=== PATIENT | female | born 1990 | race Caucasian/White ===

== ENCOUNTER 2021-04-07 16:26 | Observation (INO) | payer BC | END 2021-04-07 16:57 | disposition home or self-care (01) | LOC: MED SURG 16:26 | PROVIDERS: ADMIT Obstetrics & Gynecology; ATTEND Obstetrics & Gynecology | DX: O36.5930 Maternal care for other known or suspected poor fetal growth, third trimester, not applicable or unspecified (principal); Z3A.38 38 weeks gestation of pregnancy | CPT/HCPCS: 59025; G0378 ==

== ENCOUNTER 2021-04-13 04:42 | Inpatient (IN) | payer BC ==
[~2021-04-13 04:42] MED LIST: PITOCIN 30 UNITS/ LR 500 ML 30 UNITS/500 ML PLAST..BAG IV SCH
[2021-04-13] MEDS ORDERED: Zofran 4 MG/2 ML VIAL IV PRN (05:00)
[2021-04-13 06:14] LABS: Absolute Neutrophil Ct (ANC) 5.79 (1.4-6.9); Basophil (Absolute #) 0.02 (0-0.4); Eosinophil % 2.1 % (0.00-5.0); Eosinophil (Absolute #) 0.17 (0-0.5); Hematocrit 28.7 % (35-47); Hemoglobin 9.2 gm/dl (12.0-16.0); Lymphocyte (Absolute #) 1.57 (1.0-4.6); Lymphocytes % 19.6 % (24.0-44.0); Mean Corpuscular Hemoglobin 28.2 pg (26-32); Mean Corpuscular Hgb Concent. 32.1 g/dl (32-36); Mean Platelet Volume 9.5 fl (7.5-11.0); Monocyte (Absolute #) 0.46 (0.0-1.3); Monocytes % 5.7 % (0.0-12.0); Neutrophil % 72.4 % (36.0-66.0); Platelet Count 270 K/mm3 (150-450); Red Blood Count 3.26 M/mm3 (4.1-5.4); Red Cell Distribution Width 14.8 % (11.5-14.0)
[2021-04-13] MEDS: Lactated Ringers 1,000 ML IV SCH ×2 (06:36→11:47)
[2021-04-13] MEDS ORDERED: Lactated Ringers 1,000 ML IV ONE (07:00)
[2021-04-13] MEDS ORDERED: FENTANYL 2 MCG-BUPIV 0.125%-NS 250 ML Epidur 250 ML EPIDURAL SCH (07:00)
[2021-04-13] MEDS ORDERED: Ephedrine Sulfate 50 MG/ML IV PRN (07:00)
[2021-04-13] MEDS ORDERED: BRETHINE 1 MG/ML SQ PRN (07:15)
[2021-04-13 07:18] LABS: Appearance SLIGHTLY CLOUDY (CLEAR); Bacteria RARE /HPF (NEGATIVE); Bilirubin NEGATIVE (NEGATIVE); Blood NEGATIVE Ery/ul (0-5); Epithelial Cells FEW /HPF (FEW); Glucose NEGATIVE (NEGATIVE); Ketones SMALL (NEGATIVE); Leukocyte Esterase NEGATIVE (NEGATIVE); Mucus SLIGHT /HPF (NEGATIVE); Nitrite NEGATIVE (NEGATIVE); Protein,Urine Dip NEGATIVE (Negative); Specific Gravity 1.019 (1.005-1.025); Urobilinogen NEGATIVE mg/dL (0-1)
[2021-04-13 07:46] LABS: Amphetamine,Urine NEGATIVE (NEGATIVE); Barbiturate,Urine NEGATIVE (NEGATIVE); Benzodiazepine,Urine NEGATIVE (NEGATIVE); Cocaine,Urine NEGATIVE (NEGATIVE); Methadone,Urine NEGATIVE (NEGATIVE); Opiate,Urine NEGATIVE (NEGATIVE); PCP,Urine NEGATIVE (NEGATIVE); THC,Urine NEGATIVE (NEGATIVE)
[2021-04-13] MEDS ORDERED: XYLOCAINE 1% HCL 20 ML MDV IJ PRN (08:00)
[2021-04-13] MEDS ORDERED: CORTISONE 1% CREAM TP PRN (13:05)
[2021-04-13] MEDS ORDERED: Dulcolax 10 MG SUPP PR PRN (13:05)
[2021-04-13] MEDS ORDERED: Mylicon 80MG PO PRN (13:05)
[2021-04-13] MEDS ORDERED: Anucort-HC SUPPOSITORY PR PRN (13:05)
[2021-04-13] MEDS ORDERED: Dermoplast Spray TP PRN (13:05)
[2021-04-13] MEDS ORDERED: LANSINOH 40 GM TOP PRN (13:05)
[2021-04-13] MEDS ORDERED: NORCO 5/325 MG PO PRN (13:05)
[2021-04-13] MEDS: TYLENOL EXTRA STRENGTH 500 MG PO PRN ×2 (13:20→23:52)
[2021-04-13] MEDS ORDERED: Adacel Vial IM ONE (16:00)
[2021-04-13] MEDS ORDERED: Colace 100 MG ONE (19:43)
[2021-04-13] MEDS: Colace 100 MG PO SCH (19:47)
[2021-04-13] MEDS: MOTRIN 400 MG PO PRN (19:48)
[2021-04-14] MEDS: MOTRIN 400 MG PO PRN ×3 (06:24→22:07)
[2021-04-14 06:34] LABS: Basophil (Absolute #) 0.04 (0-0.4); Eosinophil % 1.5 % (0.00-5.0); Eosinophil (Absolute #) 0.14 (0-0.5); Hematocrit 28.8 % (35-47); Hemoglobin 9.1 gm/dl (12.0-16.0); Lymphocyte (Absolute #) 1.26 (1.0-4.6); Lymphocytes % 13.6 % (24.0-44.0); Mean Cell Volume 87.8 fl (78-100); Mean Corpuscular Hemoglobin 27.7 pg (26-32); Mean Corpuscular Hgb Concent. 31.6 g/dl (32-36); Mean Platelet Volume 9.4 fl (7.5-11.0); Monocytes % 6.5 % (0.0-12.0); Platelet Count 230 K/mm3 (150-450); Red Blood Count 3.28 M/mm3 (4.1-5.4); Red Cell Distribution Width 14.9 % (11.5-14.0); White Blood Count 9.2 K/mm3 (4.0-10.5)
--- NOTE | 2021-04-14 08:12 | PCM.NOTE ---
Date and Time: 04/14/21 0810 Subjective Assessment: ppd 1 sp pt resting in bed and doing well ambulating and tolerating diet vss afebrile abd; soft uterus; firm lochia; mild hgb; 9.1 a/p sp ppd 1 doing well anticipate discharge tomorrow should fu office in 3 wks OBJECTIVE DATA Vital Signs: Vital Signs - 24 hr Temp Pulse Resp BP BP Pulse Ox 04/14/21 04:00 97.9 F 96 H 18 108/71 04/13/21 23:55 98.4 F 88 16 115/66 04/13/21 20:00 99.4 F 90 18 112/64 04/13/21 17:00 98.2 F 100 H 18 118/62 04/13/21 16:00 98.2 F 100 H 18 118/62 04/13/21 14:15 98.2 F 86 18 106/65 04/13/21 13:15 97.8 F 104 H 18 122/59 04/13/21 13:00 92 H 18 126/64 04/13/21 12:45 104 H 18 123/72 04/13/21 12:13 97.8 F 104 H 18 125/77 04/13/21 12:10 97.8 F 104 H 18 125/77 04/13/21 12:00 97.8 F 76 18 117/74 117/74 04/13/21 11:45 97.8 F 82 18 112/72 04/13/21 11:30 97.8 F 86 18 114/74 04/13/21 11:15 97.8 F 86 18 114/74 04/13/21 11:00 97.8 F 94 H 18 109/69 04/13/21 10:45 97.8 F 94 H 18 109/69 04/13/21 10:30 97.8 F 82 18 111/64 04/13/21 10:15 97.8 F 82 18 111/72 04/13/21 10:00 97.8 F 79 18 113/76 04/13/21 09:45 97.8 F 84 18 105/67 04/13/21 09:30 97.8 F 82 18 109/70 04/13/21 09:15 97.8 F 18 04/13/21 09:00 97.8 F 75 18 106/62 04/13/21 08:45 97.8 F 85 18 105/64 04/13/21 08:30 97.8 F 95 H 18 110/57 99 04/13/21 08:15 97.8 F 99 H 18 109/67 99 Pain Assessment - Last Documented Pain Intensity 2 Pain Scale Used 0-10 Pain Scale Intake and Output: Intake & Output 04/11/21 04/12/21 04/13/21 04/14/21 11:59 11:59 11:59 11:59 Intake Total 450 Balance 450 Weight 72.575 kg Lab Results: Lab Results-Last 24 Hours 04/14/21 Range/Units 05:45 WBC 9.2 (4.0-10.5) K/mm3 RBC 3.28 L (4.1-5.4) M/mm3 Hgb 9.1 L (12.0-16.0) gm/dl Hct 28.8 L (35-47) % MCV 87.8 (78-100) fl MCH 27.7 (26-32) pg MCHC 31.6 L (32-36) g/dl RDW 14.9 H (11.5-14.0) % Plt Count 230 (150-450) K/mm3 MPV 9.4 (7.5-11.0) fl Gran % 78.0 H (36.0-66.0) % Eos # (Auto) 0.14 (0-0.5) Absolute Lymphs (auto) 1.26 (1.0-4.6) Absolute Monos (auto) 0.60 (0.0-1.3) Lymphocytes % 13.6 L (24.0-44.0) % Monocytes % 6.5 (0.0-12.0) % Eosinophils % 1.5 (0.00-5.0) % Basophils % 0.4 (0.0-0.4) % Absolute Granulocytes 7.20 H (1.4-6.9) Basophils # 0.04 (0-0.4) Assessment/Plan (1) Vaginal delivery Current Visit: Yes Status: Acute Code(s): O80 - ENCOUNTER FOR FULL-TERM UNCOMPLICATED DELIVERY
--- NOTE | 2021-04-14 08:17 | PCM.DS ---
Discharge Summary Date of Admission: 04/13/21 08:30 Admitting Physician: MEME RAMIREZ DO Consults: Consults on Case 04/13/21 07:00 Notify Anesthesia Provider PRN Primary Care Provider: TRISHA WU Allergies Allergies No Known Drug Allergies Allergy (Verified 04/13/21 04:59) Hospital Summary - Hospital Course Hospital Course: pt admitted on apr 13 for pitocin induction and underwent induction and deli rossy live baby girl via without complication on apr 13. during period did well and had stable hgb 9.1. pt otherwise doing well able to ambulate and tolerate diet and was advised to fu in office in 3 wks for care. all questions answered to her satisfaction as she is stable for discharge on apr 15. - Vitals & Intake/Output Vital Signs: Vital Signs Temperature 97.9 F 04/14/21 04:00 Pulse Rate 96 H 04/14/21 04:00 Respiratory Rate 18 04/14/21 04:00 Blood Pressure 108/71 04/14/21 04:00 O2 Sat by Pulse Oximetry 99 04/13/21 08:30 Intake & Output: Intake & Output 04/11/21 04/12/21 04/13/21 04/14/21 11:59 11:59 11:59 11:59 Intake Total 450 Balance 450 Weight 72.575 kg - Lab Result Diagrams: 04/14/21 05:45 Lab Results-Last 24 Hrs: Lab Results-Last 24 Hours 04/14/21 Range/Units 05:45 WBC 9.2 (4.0-10.5) K/mm3 RBC 3.28 L (4.1-5.4) M/mm3 Hgb 9.1 L (12.0-16.0) gm/dl Hct 28.8 L (35-47) % MCV 87.8 (78-100) fl MCH 27.7 (26-32) pg MCHC 31.6 L (32-36) g/dl RDW 14.9 H (11.5-14.0) % Plt Count 230 (150-450) K/mm3 MPV 9.4 (7.5-11.0) fl Gran % 78.0 H (36.0-66.0) % Eos # (Auto) 0.14 (0-0.5) Absolute Lymphs (auto) 1.26 (1.0-4.6) Absolute Monos (auto) 0.60 (0.0-1.3) Lymphocytes % 13.6 L (24.0-44.0) % Monocytes % 6.5 (0.0-12.0) % Eosinophils % 1.5 (0.00-5.0) % Basophils % 0.4 (0.0-0.4) % Absolute Granulocytes 7.20 H (1.4-6.9) Basophils # 0.04 (0-0.4) Micro Results-Entire Visit: Microbiology 04/13/21 08:25 Urine Culture - Preliminary Urine, Indwelling Catheter NO GROWTH TO DATE Final Diagnosis/Problem List - Final Discharge Diagnosis/Problem (1) Vaginal delivery Current Visit: Yes Status: Acute Code(s): O80 - ENCOUNTER FOR FULL-TERM UNCOMPLICATED DELIVERY - Discharge Disposition: Home, Self-Care Condition: Stable Prescriptions: No Action No Reportable Medications [No Reported Medications] Follow up with: TRISHA WU PA [Primary Care Provider] - MEME RAMIREZ DO [ACTIVE STAFF] - 3 weeks (should fu in office in 3 wks)
[2021-04-14] MEDS: Colace 100 MG PO SCH ×2 (09:14→21:01)
[2021-04-14] MEDS ORDERED: FERREX 150 PO SCH (10:00)
[2021-04-14 10:09] LABS: HBsAg Screen Negative (Negative)
[2021-04-14] MEDS ORDERED: TUCKS TP ONE (21:01)
[2021-04-14] MEDS: Lactated Ringers 1,000 ML IV SCH (21:02)
[2021-04-14] MEDS ORDERED: TUCKS TP PRN (21:03)
[2021-04-15 02:33] VITALS: O2SAT 97
[2021-04-15 11:46] VITALS: BP 108/59; PULSE 92
== END 2021-04-15 09:45 | disposition home or self-care (01) | DRG 807 ==
LOC: MED SURG 04:42 → OBSVTOIN 08:30 → OB 09:23
PROVIDERS: ADMIT Obstetrics & Gynecology; ATTEND Obstetrics & Gynecology
PROC: 10E0XZZ Delivery of Products of Conception, External Approach (ICD-10-PCS; principal; 2021-04-13)
DX: O70.1 Second degree perineal laceration during delivery (principal); Z37.0 Single live birth; Z3A.39 39 weeks gestation of pregnancy; Z20.828 Contact with and (suspected) exposure to other viral communicable diseases
CPT/HCPCS: 36415; 59400; 80307; 81001; 85025; 87086; 87340; 90715; G0378; J2590; A9270-GY

== ENCOUNTER 2023-01-19 09:41 | Inpatient (IN) | payer BC ==
[2023-01-19] MEDS ORDERED: Lactated Ringers 1,000 ML IV ONE (09:44)
[2023-01-19] MEDS ORDERED: Ephedrine Sulfate 50 MG/ML IV PRN (09:44)
[2023-01-19] MEDS ORDERED: FENTANYL 2 MCG-BUPIV 0.125%-NS 250 ML Epidur 250 ML EPIDURAL SCH (09:45)
[2023-01-19] MEDS ORDERED: PITOCIN 30 UNITS/ LR 500 ML 30 UNITS/500 ML PLAST..BAG IV SCH (10:00)
[2023-01-19 10:09] LABS: Absolute Neutrophil Ct (ANC) 7.76 x10^3/uL (1.4-6.9); BASOPHIL % 0.7 % (0.0-0.4); Basophil (Absolute #) 0.07 x10^3/uL (0-0.4); Hematocrit 35.3 % (35-47); Hemoglobin 11.8 g/dL (12.0-16.0); IMMATURE GRAN # 0.06 x10^3u/L (0.00-0.03); IMMATURE GRAN % 0.6 % (0.00-0.4); Mean Cell Volume 95.9 fL (78-100); Mean Corpuscular Hemoglobin 32.1 pg (26-32); Mean Corpuscular Hgb Concent. 33.4 g/dL (32-36); Mean Platelet Volume 9.6 fL (7.5-11.0); Monocyte (Absolute #) 0.92 x10^3/uL (0.0-1.3); Monocytes % 9.2 % (0.0-12.0); Neutrophil % 77.5 % (36.0-66.0); Platelet Count 196 x10^3/uL (150-450); Red Blood Count 3.68 x10^6/uL (4.1-5.4)
[2023-01-19 10:46] LABS: INFLUENZA A NEGATIVE (NEGATIVE); INFLUENZA B NEGATIVE (NEGATIVE); RESPIRATORY SYNCTIAL VIRUS NEGATIVE (NEGATIVE); SARS-CoV-2 Xpert Express NEGATIVE (NEGATIVE)
[2023-01-19 10:48] LABS: ABO TYPING A; Antibody Screen NEGATIVE (NEGATIVE); RH TYPING POSITIVE
[2023-01-19 10:55] LABS: Amphetamine,Urine NEGATIVE (NEGATIVE); Barbiturate,Urine NEGATIVE (NEGATIVE); Benzodiazepine,Urine NEGATIVE (NEGATIVE); Cocaine,Urine NEGATIVE (NEGATIVE); Methadone,Urine NEGATIVE (NEGATIVE); Opiate,Urine NEGATIVE (NEGATIVE); PCP,Urine NEGATIVE (NEGATIVE); THC,Urine NEGATIVE (NEGATIVE)
[2023-01-19] MEDS: Lactated Ringers 1,000 ML IV SCH ×2 (11:09→19:18)
[2023-01-19] MEDS ORDERED: Dermoplast Spray TP PRN (13:43)
[2023-01-19] MEDS ORDERED: LANSINOH 40 GM TOP PRN (13:43)
[2023-01-19] MEDS ORDERED: TUCKS TP PRN (13:43)
[2023-01-19] MEDS ORDERED: TYLENOL EXTRA STRENGTH 500 MG PO PRN (13:43)
[2023-01-19] MEDS: MOTRIN 400 MG PO PRN ×2 (15:32→21:28)
[2023-01-19] MEDS ORDERED: Adacel Vial IM ONE (18:00)
[2023-01-19] MEDS: Docusate Sodium 100 MG PO SCH (21:28)
[2023-01-20] MEDS: MOTRIN 400 MG PO PRN (06:01)
[2023-01-20 06:07] LABS: BASOPHIL % 0.5 % (0.0-0.4); Basophil (Absolute #) 0.05 x10^3/uL (0-0.4); Eosinophil % 4.1 % (0.00-5.0); Hematocrit 34.2 % (35-47); Hemoglobin 11.2 g/dL (12.0-16.0); IMMATURE GRAN # 0.05 x10^3u/L (0.00-0.03); IMMATURE GRAN % 0.5 % (0.00-0.4); Lymphocytes % 12.4 % (24.0-44.0); Mean Cell Volume 95.8 fL (78-100); Mean Corpuscular Hemoglobin 31.4 pg (26-32); Mean Corpuscular Hgb Concent. 32.7 g/dL (32-36); Mean Platelet Volume 9.4 fL (7.5-11.0); Monocyte (Absolute #) 0.88 x10^3/uL (0.0-1.3); Monocytes % 9.1 % (0.0-12.0); Neutrophil % 73.4 % (36.0-66.0); Platelet Count 158 x10^3/uL (150-450); Red Blood Count 3.57 x10^6/uL (4.1-5.4); White Blood Count 9.7 x10^3/uL (4.0-10.5)
--- NOTE | 2023-01-20 09:40 | PCM.DS ---
Discharge Summary Date of Admission: 01/19/23 10:06 Admitting Physician: MEME RAMIREZ DO Consults: Consults on Case 01/19/23 09:48 Notify Anesthesia Provider PRN Primary Care Provider: TRISHA WU Allergies Allergies No Known Drug Allergies Allergy (Verified 04/13/21 04:59) Hospital Summary - Hospital Course Hospital Course: patient arrived 32 yo at 38 1/7wks EGA induced due to oligohydramnios. she had a quick labor and uneventful term delivery, she is with mild lochia and no problems or concerns . well bonded with baby, 3rd child and has breastfed each. requesting early discharge due to holiday today. - Vitals & Intake/Output Vital Signs: Vital Signs Temperature 97.6 F 01/20/23 02:00 Pulse Rate 96 H 01/20/23 02:00 Respiratory Rate 16 01/20/23 02:00 Blood Pressure 109/67 01/20/23 02:00 O2 Sat by Pulse Oximetry 98 01/20/23 02:00 Intake & Output: Intake & Output 01/17/23 01/18/23 01/19/23 01/20/23 11:59 11:59 11:59 11:59 Intake Total 1000 600 Output Total 850 Balance 1000 -250 Weight 165 kg - Lab Result Diagrams: 01/20/23 06:03 Lab Results-Last 24 Hrs: Lab Results-Last 24 Hours 01/19/23 01/19/23 01/19/23 Range/Units 09:59 09:59 09:59 WBC 10.0 (4.0-10.5) x10^3/uL RBC 3.68 L (4.1-5.4) x10^6/uL Hgb 11.8 L (12.0-16.0) g/dL Hct 35.3 (35-47) % MCV 95.9 (78-100) fL MCH 32.1 H (26-32) pg MCHC 33.4 (32-36) g/dL RDW 17.0 H (11.5-14.0) % Plt Count 196 (150-450) x10^3/uL MPV 9.6 (7.5-11.0) fL Gran % 77.5 H (36.0-66.0) % Immature Gran % (Auto) 0.6 H (0.00-0.4) % Nucleat RBC Rel Count 0.0 (0.00-0.1) % Eos # (Auto) 0.50 (0-0.5) x10^3/uL Immature Gran # (Auto) 0.06 H (0.00-0.03) x10^3u/L Absolute Lymphs (auto) 0.70 L (1.0-4.6) x10^3/uL Absolute Monos (auto) 0.92 (0.0-1.3) x10^3/uL Absolute Nucleated RBC 0.00 (0.00-0.01) x10^3u/L Lymphocytes % 7.0 L (24.0-44.0) % Monocytes % 9.2 (0.0-12.0) % Eosinophils % 5.0 (0.00-5.0) % Basophils % 0.7 (0.0-0.4) % Absolute Granulocytes 7.76 H (1.4-6.9) x10^3/uL Basophils # 0.07 (0-0.4) x10^3/uL Urine Opiates Level NEGATIVE (NEGATIVE) Ur Methadone NEGATIVE (NEGATIVE) Urine Barbiturates NEGATIVE (NEGATIVE) Ur Phencyclidine (PCP) NEGATIVE (NEGATIVE) Urine Amphetamine NEGATIVE (NEGATIVE) U Benzodiazepine Level NEGATIVE (NEGATIVE) Urine Cocaine NEGATIVE (NEGATIVE) Urine Marijuana (THC) NEGATIVE (NEGATIVE) Influenza Type A Ag (NEGATIVE) Influenza Type B Ag (NEGATIVE) RSV (PCR) (NEGATIVE) SARS-CoV-2 (PCR) (NEGATIVE) ABO Group A Rh Factor POSITIVE Antibody Screen NEGATIVE (NEGATIVE) 01/19/23 01/20/23 Range/Units 09:59 06:03 WBC 9.7 (4.0-10.5) x10^3/uL RBC 3.57 L (4.1-5.4) x10^6/uL Hgb 11.2 L (12.0-16.0) g/dL Hct 34.2 L (35-47) % MCV 95.8 (78-100) fL MCH 31.4 (26-32) pg MCHC 32.7 (32-36) g/dL RDW 17.0 H (11.5-14.0) % Plt Count 158 (150-450) x10^3/uL MPV 9.4 (7.5-11.0) fL Gran % 73.4 H (36.0-66.0) % Immature Gran % (Auto) 0.5 H (0.00-0.4) % Nucleat RBC Rel Count 0.0 (0.00-0.1) % Eos # (Auto) 0.40 (0-0.5) x10^3/uL Immature Gran # (Auto) 0.05 H (0.00-0.03) x10^3u/L Absolute Lymphs (auto) 1.20 (1.0-4.6) x10^3/uL Absolute Monos (auto) 0.88 (0.0-1.3) x10^3/uL Absolute Nucleated RBC 0.00 (0.00-0.01) x10^3u/L Lymphocytes % 12.4 L (24.0-44.0) % Monocytes % 9.1 (0.0-12.0) % Eosinophils % 4.1 (0.00-5.0) % Basophils % 0.5 (0.0-0.4) % Absolute Granulocytes 7.10 H (1.4-6.9) x10^3/uL Basophils # 0.05 (0-0.4) x10^3/uL Urine Opiates Level (NEGATIVE) Ur Methadone (NEGATIVE) Urine Barbiturates (NEGATIVE) Ur Phencyclidine (PCP) (NEGATIVE) Urine Amphetamine (NEGATIVE) U Benzodiazepine Level (NEGATIVE) Urine Cocaine (NEGATIVE) Urine Marijuana (THC) (NEGATIVE) Influenza Type A Ag NEGATIVE (NEGATIVE) Influenza Type B Ag NEGATIVE (NEGATIVE) RSV (PCR) NEGATIVE (NEGATIVE) SARS-CoV-2 (PCR) NEGATIVE (NEGATIVE) ABO Group Rh Factor Antibody Screen (NEGATIVE) Discharge Exam General Appearance: no apparent distress Neurologic Exam: alert, oriented x 3 Respiratory Exam: normal breath sounds, lungs clear, No respiratory distress Cardiovascular Exam: regular rate/rhythm, normal heart sounds Gastrointestinal/Abdomen Exam: soft, other (fundus firm) Extremity Exam: normal inspection, normal range of motion Skin Exam: normal color, warm, dry Final Diagnosis/Problem List - Final Discharge Diagnosis/Problem (1) Vaginal delivery Current Visit: No Status: Acute Code(s): O80 - ENCOUNTER FOR FULL-TERM UNCOMPLICATED DELIVERY - Discharge Disposition: Home, Self-Care Condition: Stable Prescriptions: No Action No Reportable Medications [No Reported Medications] Follow up with: MEME RAMIREZ DO [ACTIVE STAFF] - 6 weeks
[2023-01-20] MEDS ORDERED: FERREX 150 PO SCH (10:00)
[2023-01-20] MEDS: Docusate Sodium 100 MG PO SCH (10:43)
[2023-01-20 11:46] VITALS: BP 110/63; PULSE 85; RESP 18; TEMP 97.4; O2SAT 97
== END 2023-01-20 16:45 | disposition home or self-care (01) | DRG 807 ==
LOC: OB 09:41 → OBSVTOIN 10:06
PROVIDERS: ADMIT Obstetrics & Gynecology; ATTEND Obstetrics & Gynecology
PROC: 10E0XZZ Delivery of Products of Conception, External Approach (ICD-10-PCS; principal; 2023-01-20)
DX: O41.03X0 Oligohydramnios, third trimester, not applicable or unspecified (principal); Z37.0 Single live birth; Z3A.38 38 weeks gestation of pregnancy; Z20.828 Contact with and (suspected) exposure to other viral communicable diseases
CPT/HCPCS: 0241U; 36415; 59409; 80307; 85025; 86850; 86900; 86901; 87086; 96372; 90715; J2590; A9270-GY